=== PATIENT | male | born 1970 | race Caucasian/White ===

== ENCOUNTER → 2020-11-05 14:01 | Outpatient (CLI) | payer OTHER, SELFPAY ==
--- NOTE | ~2020-11-05 | MR_ITS ---
EXAMINATION: MR sacroiliac jts wo/w con DATE: 11/05/2020 15:09 INDICATION: Ulcerative pancolitis without complications. TECHNIQUE: Magnetic resonance imaging (MRI) of the sacroiliac joints was performed without and with 2 0 mL MultiHance intravenous contrast. Sequences included coronal oblique (coronal to sacrum) T1-weigh luisa FSE and T2-weighted FS FSE, axial oblique (axial to sacrum) T1-weighted FSE, T1-weighted FS FSE, and T2-weighted FS FSE, and sagittal PD-weighted FSE. Postcontrast images included axial oblique and coronal oblique T1-weighted FS FSE. COMPARISON: CT abdomen and pelvis 02/21/19 FINDINGS: Bone alignment is normal. No fracture. The sacroiliac joints demonstrate tiny osteophytes. There is subchondral edema-like marrow signal intensity in the sacroiliac joints inferiorly, right wo rse than left. There are no visible erosions of bone. The prior CT demonstrates no erosions of bone a t the sacroiliac joints. There is moderate tendinopathy of right hamstring origin. IMPRESSION: 1. Mild bilateral sacroiliac joint arthritis, which may be osteoarthritis or inflammatory bowel disea se associated inflammatory arthritis. Reviewed, dictated and finalized at location A. R DONOR COORDINATOR IMPRESSION: 1. Mild bilateral sacroiliac joint arthritis, which may be osteoarthritis or in flammatory bowel disease associated inflammatory arthritis.
[2020-11-05 14:31] LABS: Estimated Glomerular Filt Rate > 60
== END ==
PROVIDERS: PCP Family Medicine; Visit Provider Internal Medicine
DX: K51.00 Ulcerative (chronic) pancolitis without complications (principal); M47.898 Other spondylosis, sacral and sacrococcygeal region
CPT/HCPCS: 72197; A9577

== ENCOUNTER 2020-11-19 09:40 | Outpatient (CLI) | payer OTHER, SELFPAY ==
[2020-11-19 10:05] LABS: Basophils Percent Auto 0.5 % (0.2-1.2); Eosinophils Absolute Auto 0.1 K/mm3 (0-0.3); Eosinophils Percent Auto 1.3 % (0-4.4); Hematocrit 40.3 % (42.0-52.0); Immature Granulocyte Absolute 0.02 K/mm3 (0.00-0.031); Immature Granulocyte Percent A 0.2 % (0-0.5); Lymphocytes Absolute Auto 1.82 K/mm3 (0.9-3.2); Lymphocytes Percent Auto 22.3 % (18.3-44.2); Mean Corpuscular HGB Conc 32.3 g/dl (32-36); Mean Corpuscular Volume 93.1 fl (80-100); Mean Platelet Volume 9.4 fl (7.4-10.4); Monocytes Absolute Auto 0.7 K/mm3 (0.1-0.6); Monocytes Percent Auto 8.3 % (2.6-8.5); Neutrophils Absolute Auto 5.5 K/mm3 (1.3-6.7); Neutrophils Percent Auto 67.4 % (45.5-73.1); Platelet Count Result 344 k/mm3 (150-375); Red Blood Count 4.33 M/mm3 (4.6-6.20); Red Cell Distribution Width 12.8 % (11.5-14.5); White Blood Count 8.2 K/mm3 (4.5-10.0)
[2020-11-19 12:36] LABS: Iron 78 ug/dL (49-181)
[2020-11-19 12:39] LABS: Alanine Aminotransferase 19 U/L (4-50); Albumin Level 4.1 g/dL (3.5-5.1); Alkaline Phosphatase 76 U/L (38-126); Anion Gap 9 mmol/L (8-16); Aspartate Amino Transferase 27 U/L (17-59); Bilirubin,Total 1.1 mg/dL (0.2-1.3); Blood Urea Nitrogen 25 mg/dL (9-20); Calcium 9.3 mg/dL (8.4-10.2); Carbon Dioxide 23 mmol/L (22-30); Chloride 106 mmol/L (98-107); Estimated Glomerular Filt Rate > 60; Glucose 93 mg/dL (75-110); Potassium 4.7 mmol/L (3.4-5.0); Sodium 138 mmol/L (137-145)
[2020-11-19 12:52] LABS: Percent Iron Saturation 23 % (20-50)
[2020-11-19 13:43] LABS: Folic Acid 18.3 ng/mL (2.76->20)
== END 2020-11-19 09:41 | disposition home or self-care (01) ==
LOC: ANHLAB 09:42
PROVIDERS: Family Provider Family Medicine; PCP Family Medicine; Visit Provider Internal Medicine Hematology & Oncology
DX: D50.9 Iron deficiency anemia, unspecified (principal)
CPT/HCPCS: 36415; 80053; 82607; 82728; 82746; 83540; 83550; 85025

== ENCOUNTER 2020-12-30 08:32 | Outpatient (CLI) | payer OTHER, SELFPAY | END 2020-12-30 08:33 | disposition home or self-care (01) | LOC: ANHCOVIDVC 08:32 | PROVIDERS: PCP Family Medicine | DX: Z23 Encounter for immunization (principal) | CPT/HCPCS: 0001A; 91300 ==

== ENCOUNTER 2021-01-20 08:33 | Outpatient (CLI) | payer OTHER, SELFPAY | END 2021-01-20 08:34 | disposition home or self-care (01) | LOC: ANHCOVIDVC 08:34 | PROVIDERS: PCP Family Medicine | DX: Z23 Encounter for immunization (principal) | CPT/HCPCS: 0002A; 91300 ==

== ENCOUNTER → 2021-08-02 03:32 | Outpatient (CLI) | payer OTHER, SELFPAY ==
[2021-08-02 19:14] LABS: SARS-CoV-2 RNA PCR Positive
== END ==
PROVIDERS: PCP Family Medicine; Visit Provider Nurse Practitioner Family
DX: U07.1 COVID-19 (principal)
CPT/HCPCS: C9803; U0003; U0005

== ENCOUNTER 2021-09-16 13:33 | Outpatient (RCR) | payer OTHER, SELFPAY ==
[2021-09-16 14:02] LABS: Basophils Percent Auto 0.4 % (0.2-1.2); Eosinophils Absolute Auto 0.1 K/mm3 (0-0.3); Eosinophils Percent Auto 1.4 % (0-4.4); Hematocrit 38.7 % (42.0-52.0); Immature Granulocyte Absolute 0.02 K/mm3 (0.00-0.031); Immature Granulocyte Percent A 0.3 % (0-0.5); Lymphocytes Absolute Auto 2.09 K/mm3 (0.9-3.2); Lymphocytes Percent Auto 29.5 % (18.3-44.2); Mean Corpuscular HGB Conc 33.6 g/dl (32-36); Mean Corpuscular Hemoglobin 30.9 pg (26-34); Mean Corpuscular Volume 91.9 fl (80-100); Monocytes Absolute Auto 0.6 K/mm3 (0.1-0.6); Monocytes Percent Auto 8.1 % (2.6-8.5); Neutrophils Absolute Auto 4.3 K/mm3 (1.3-6.7); Neutrophils Percent Auto 60.3 % (45.5-73.1); Platelet Count Result 356 k/mm3 (150-375); Red Blood Count 4.21 M/mm3 (4.6-6.20); Red Cell Distribution Width 13.5 % (11.5-14.5); White Blood Count 7.1 K/mm3 (4.5-10.0)
[2021-09-16 15:35] LABS: Iron 60 ug/dL (49-181)
[2021-09-16 15:36] LABS: Anion Gap 8 mmol/L (8-16); Blood Urea Nitrogen 18 mg/dL (9-20); Calcium 9.3 mg/dL (8.4-10.2); Carbon Dioxide 26 mmol/L (22-30); Chloride 103 mmol/L (98-107); Estimated Glomerular Filt Rate > 60; Glucose 117 mg/dL (65-110); Potassium 3.9 mmol/L (3.4-5.0); Sodium 137 mmol/L (137-145)
[2021-09-16 15:44] LABS: Percent Iron Saturation 17 % (20-50)
== END 2021-12-15 23:59 | disposition home or self-care (01) ==
LOC: ANHLAB 13:33
PROVIDERS: PCP Family Medicine; Visit Provider Internal Medicine Hematology & Oncology
DX: D50.9 Iron deficiency anemia, unspecified (principal)
CPT/HCPCS: 36415; 80048; 82728; 83540; 83550; 85025

== ENCOUNTER 2022-09-23 09:26 | Emergency (ER) | payer OTHER, SELFPAY ==
[2022-09-23 09:36] VITALS: BP 106/65; PULSE 74; RESP 16; TEMP 37.4; O2SAT 99
--- NOTE | 2022-09-23 09:37 | ED.URI ---
HPI - URI/Sore Throat General Chief Complaint: Upper Respiratory Infection Stated Complaint: cough Time Seen by Provider: 09/23/22 09:40 Source: patient Mode of arrival: ambulatory Limitations: no limitations History of Present Illness HPI Narrative: Biju is a 52-year-old male patient presenting to clinic today with complaints cough that has been lingering for over 1 month. He denies any fever or chills. He denies any flu-like symptoms. States that he does not feel as though he is congested but has a cough that is productive at times. He states that the phlegm is use like clear. MD elicited complaint: cough Related Data Home Medications Medication Instructions Recorded Confirmed ferrous sulfate 325 mg (65 mg 325 mg PO DAILY 12/17/20 09/23/22 iron) tablet (FeroSul) calcium carb-ergocalciferol (vit 1 tablet PO DAILY 04/10/22 09/23/22 D2) 600 mg calcium-200 unit tablet multivitamin 1 tablet PO DAILY 04/10/22 09/23/22 prednisone 5 mg tablet 5 mg PO DAILY 09/23/22 09/23/22 Allergies Allergy/AdvReac Type Severity Reaction Status Date / Time ferumoxytol Allergy Unknown Flushing Verified 09/23/22 09:37 Review of Systems Review of Systems: Pertinent positives per HPI. Patient denies any fever, chills, rash, headache, visual changes, dizziness, shortness of breath, chest pain, palpitations, nausea, vomiting, diarrhea, constipation, abdominal pain, or any urinary issues. PMFSH Past Medical History Medical History Abscess Colostomy care Deficient knowledge of surgical removal of colon H/O malignant neoplasm of skin Iron deficiency anemia Pleural effusion Ulcerative (chronic) enterocolitis (~2019) Surgical History Surgical History H/O hemicolectomy S/P proctocolectomy Family History Family History Father Family history of malignant neoplasm of esophagus Social History Social History Smoking status: Never smoker Alcohol intake: current Drinks per week: 2 Alcohol use details: casual Substance use: never Additional occupation/education comments: Sales management Gender identity (if verbalized by the patient): Male Spiritual care concerns: No Comments At the time of my signature, I reviewed and agree with the nursing past medical, surgical, social, and family history. There is no relevant family history pertinent to the patient complaint. Exam Narrative: General: Well-developed, well nourished, in no apparent distress Head: Normocephalic, atraumatic Eyes: Pupils equally round and reactive to light bilaterally, EOM intact, sclera and conjunctive clear, no discharge, lids normal Ears: TMs intact and clear, ear canals clear, no drainage, grossly hearing normal. Nose: Nares patent, clear nasal discharge, no inflammation, no sinus tenderness. Mouth: Oral pharynx without lesions or masses, good dentition, MMM. Postnasal drip Neck: Supple, trachea midline, no enlargement of anterior or posterior cervical nodes, no thyroid masses or goiter palpable. Cardio: Regular rate and rhythm, s1 and s2 normal, no murmur appreciated. Resp: Clear to auscultation bilaterally, no rhonchi, rales, wheezing or rubs Course Course Emergency Course: Portions of this record may have been created with voice recognition software. Level of Care: Express Care Visit Vital Signs Vital signs: Vital Signs Temperature 37.4 C 09/23/22 09:36 Pulse Rate 74 09/23/22 09:36 Respiratory Rate 16 09/23/22 09:36 Blood Pressure 106/65 09/23/22 09:36 Pulse Oximetry 99 09/23/22 09:36 Temperature 37.4 C 09/23/22 09:36 Pulse Rate 74 09/23/22 09:36 Respiratory Rate 16 09/23/22 09:36 Blood Pressure 106/65 09/23/22 09:36 Pulse Oximetry 99 09/23/22
== END 2022-09-23 09:49 | disposition home or self-care (01) ==
PROVIDERS: Emergency Provider Nurse Practitioner Family; PCP Family Medicine
DX: J30.9 Allergic rhinitis, unspecified (principal); R09.82 Postnasal drip
CPT/HCPCS: 99213; G0463

== ENCOUNTER 2023-01-22 09:39 | Outpatient (CLI) | payer OTHER, SELFPAY ==
[2023-01-22 10:01] LABS: Basophils Percent Auto 0.4 % (0.2-1.2); Eosinophils Absolute Auto 0.1 K/mm3 (0-0.3); Eosinophils Percent Auto 1.7 % (0-4.4); Hematocrit 40.1 % (42.0-52.0); Hemoglobin 13.1 g/dL (14.0-18.0); Immature Granulocyte Absolute 0.05 K/mm3 (0.00-0.031); Immature Granulocyte Percent A 0.7 % (0-0.5); Lymphocytes Absolute Auto 1.97 K/mm3 (0.9-3.2); Lymphocytes Percent Auto 27.4 % (18.3-44.2); Mean Corpuscular HGB Conc 32.7 g/dl (32-36); Mean Corpuscular Hemoglobin 30.8 pg (26-34); Mean Corpuscular Volume 94.1 fl (80-100); Monocytes Absolute Auto 0.5 K/mm3 (0.1-0.6); Monocytes Percent Auto 6.7 % (2.6-8.5); Neutrophils Absolute Auto 4.6 K/mm3 (1.3-6.7); Neutrophils Percent Auto 63.1 % (45.5-73.1); Platelet Count Result 317 k/mm3 (150-375); Red Blood Count 4.26 M/mm3 (4.6-6.20); Red Cell Distribution Width 12.8 % (11.5-14.5); White Blood Count 7.2 K/mm3 (4.5-10.0)
[2023-01-22 13:22] LABS: Iron 117 ug/dL (49-181)
[2023-01-22 13:27] LABS: Anion Gap 9 mmol/L (8-16); Blood Urea Nitrogen 20 mg/dL (9-20); Calcium 8.3 mg/dL (8.4-10.2); Carbon Dioxide 25 mmol/L (22-30); Chloride 105 mmol/L (98-107); Estimated Glomerular Filt Rate > 60; Glucose 101 mg/dL (65-110); Sodium 139 mmol/L (137-145)
[2023-01-22 13:32] LABS: Percent Iron Saturation 33 % (20-50)
[2023-01-22 14:28] LABS: Folic Acid 15.2 ng/mL (2.76->20)
== END 2023-01-22 09:40 | disposition home or self-care (01) ==
LOC: ANHLAB 09:41
PROVIDERS: PCP Family Medicine; Visit Provider Internal Medicine Hematology & Oncology
DX: D50.9 Iron deficiency anemia, unspecified (principal)
CPT/HCPCS: 36415; 80048; 82607; 82728; 82746; 83540; 83550; 85025

== ENCOUNTER 2023-07-31 13:28 | Outpatient (CLI) | payer OTHER, SELFPAY ==
[2023-07-31 13:42] LABS: Basophils Percent Auto 0.6 % (0.2-1.2); Eosinophils Absolute Auto 0.1 K/mm3 (0-0.3); Eosinophils Percent Auto 1.5 % (0-4.4); Hematocrit 40.8 % (42.0-52.0); Hemoglobin 14.1 g/dL (14.0-18.0); Immature Granulocyte Absolute 0.02 K/mm3 (0.00-0.031); Immature Granulocyte Percent A 0.3 % (0-0.5); Lymphocytes Percent Auto 30.3 % (18.3-44.2); Mean Corpuscular HGB Conc 34.6 g/dl (32-36); Mean Corpuscular Hemoglobin 32.1 pg (26-34); Mean Corpuscular Volume 92.9 fl (80-100); Mean Platelet Volume 9.6 fl (7.4-10.4); Monocytes Absolute Auto 0.6 K/mm3 (0.1-0.6); Monocytes Percent Auto 8.5 % (2.6-8.5); Neutrophils Absolute Auto 3.9 K/mm3 (1.3-6.7); Neutrophils Percent Auto 58.8 % (45.5-73.1); Platelet Count Result 277 k/mm3 (150-375); Red Blood Count 4.39 M/mm3 (4.6-6.20); Red Cell Distribution Width 12.5 % (11.5-14.5); White Blood Count 6.6 K/mm3 (4.5-10.0)
[2023-07-31 16:31] LABS: Anion Gap 8 mmol/L (8-16); Blood Urea Nitrogen 19 mg/dL (9-20); Calcium 8.9 mg/dL (8.4-10.2); Carbon Dioxide 23 mmol/L (22-30); Chloride 104 mmol/L (98-107); Estimated Glomerular Filt Rate > 60; Glucose 129 mg/dL (65-110); Iron 99 ug/dL (49-181); Potassium 3.7 mmol/L (3.4-5.0); Sodium 135 mmol/L (137-145)
[2023-07-31 16:45] LABS: Percent Iron Saturation 27 % (20-50)
[2023-07-31 17:38] LABS: Folic Acid 17.7 ng/mL (2.76->20)
== END 2023-07-31 13:29 | disposition home or self-care (01) ==
PROVIDERS: PCP Family Medicine; Visit Provider Internal Medicine Hematology & Oncology
DX: D50.9 Iron deficiency anemia, unspecified (principal)
CPT/HCPCS: 36415; 80048; 82607; 82728; 82746; 83540; 83550; 85025

== ENCOUNTER 2024-07-13 09:44 | Emergency (ER) | payer OTHER, SELFPAY ==
[2024-07-13 09:56] VITALS: BP 119/67; PULSE 64; RESP 16; TEMP 36.4; O2SAT 100
--- NOTE | 2024-07-13 10:26 | ED.SKABFB ---
HPI - Skin/Abscess/Foreign Bdy General Chief complaint: Skin/Abscess/Foreign Body Stated complaint: Sore on Toe Time Seen by Provider: 07/13/24 10:10 Source: patient and RN notes reviewed Mode of arrival: ambulatory Limitations: no limitations History of Present Illness HPI narrative: Patient presents today complaining of a sore to his right 3rd toe that has been present for approximately 10 days. He has been using a medicated corn pad on the area of which does provide some relief. Denies drainage from the area. Related Data Home Medications Medication Instructions Recorded Confirmed ferrous sulfate 325 mg (65 mg 325 mg PO DAILY 12/17/20 07/13/24 iron) tablet (FeroSul) calcium carb-ergocalciferol (vit 1 tablet PO DAILY 04/10/22 07/13/24 D2) 600 mg calcium-200 unit tablet multivitamin 1 tablet PO DAILY 04/10/22 07/13/24 cefdinir 300 mg capsule 300 mg PO DAILY 06/23/24 07/13/24 Allergies Allergy/AdvReac Type Severity Reaction Status Date / Time ferumoxytol Allergy Unknown Flushing Verified 07/13/24 10:03 Review of Systems Review of Systems: CONSTITUTIONAL: Denies body aches, fever, chills, or sweats. EYES: Denies visual changes, redness, or discharge. ENT: Denies rhinorrhea, congestion, sore throat, or otalgia. CARDIOVASCULAR: Denies chest pain, palpitations, or edema. RESPIRATORY: Denies cough or dyspnea. GASTROINTESTINAL: Denies abdominal pain, nausea, vomiting, or diarrhea. GENITOURINARY: Denies dysuria or hematuria. SKIN: Sore to right 3rd toe MUSCULOSKELETAL: Denies back pain, joint pain, or myalgia. NEUROLOGIC: Denies headache, numbness, tingling, or weakness. PSYCH: Denies depression or anxiety. [facility] Past Medical History Medical History Abscess BCC (basal cell carcinoma) Colostomy care Deficient knowledge of surgical removal of colon H/O malignant neoplasm of skin Iron deficiency anemia Pleural effusion Ulcerative (chronic) enterocolitis (~2018) Surgical History Surgical History H/O hemicolectomy S/P proctocolectomy Family History Family History Father Family history of malignant neoplasm of esophagus Social History Social History Smoking status: Never smoker Alcohol intake: current Drinks per week: 2 Alcohol use details: casual Substance use: never Living arrangements: with family Occupation/Education: occupation Additional occupation/education comments: Sales management Gender identity (if verbalized by the patient): Male Spiritual care concerns: No Comments At time of signature, I have reviewed and agree with nursing past medical, surgical, social and family history unless otherwise noted. Please see nursing chart for further information. There is no relevant family history pertinent to the presenting complaint Exam Narrative: GENERAL: Well-appearing, well-nourished, and in no acute distress. HEAD: Normocephalic, atraumatic. EYES: EOMI. No redness or drainage. Conjunctivae normal. ENT: Mucous membranes pink and moist. NECK: Normal AROM. CHEST: No respiratory distress. EXTREMITIES: 1cm round white firm macerated skin lesion to the lateral aspect of the right 3rd toe. Nontender to palpation. Some mild surrounding erythema. Distal sensation intact. Capillary refill normal. Full range of motion of the toe. SKIN: Warm, dry, no rash. Capillary refill normal. Normal skin turgor. NEURO: No focal deficits. Alert and oriented x3. Gait steady. PSYCH: Normal affect. No signs of depression or anxiety. Course Course Level of Care: Express Care Visit Vital Signs Vital signs: Vital Signs Temperature 97.6 F 07/13/24 09:56 Pulse Rate 64 07/13/24 09:56 Respiratory Rate 16 07/13/24 09:56 Blood Pre
== END 2024-07-13 10:34 | disposition home or self-care (01) ==
PROVIDERS: Emergency Provider Nurse Practitioner; PCP Family Medicine
DX: L97.519 Non-pressure chronic ulcer of other part of right foot with unspecified severity (principal); D50.9 Iron deficiency anemia, unspecified; Z85.828 Personal history of other malignant neoplasm of skin
CPT/HCPCS: 99213; G0463

== ENCOUNTER 2024-09-15 10:15 | Outpatient (CLI) | payer OTHER, SELFPAY ==
[2024-09-15 10:30] LABS: Hematocrit 39.9 % (42.0-52.0); Hemoglobin 13.6 g/dL (14.0-18.0); Mean Corpuscular HGB Conc 34.1 g/dl (32-36); Mean Corpuscular Hemoglobin 32.1 pg (26-34); Mean Corpuscular Volume 94.1 fl (80-100); Mean Platelet Volume 9.3 fl (7.4-10.4); Platelet Count Result 262 k/mm3 (150-375); Red Blood Count 4.24 M/mm3 (4.6-6.20); Red Cell Distribution Width 12.2 % (11.5-14.5); White Blood Count 6.2 K/mm3 (4.5-10.0)
[2024-09-15 12:54] LABS: Iron 105 ug/dL (49-181)
[2024-09-15 13:04] LABS: Percent Iron Saturation 29 % (20-50)
[2024-09-16 06:54] LABS: Folic Acid 16.5 ng/mL (2.76->20)
== END 2024-09-15 10:16 | disposition home or self-care (01) ==
LOC: ANHLAB 10:17
PROVIDERS: PCP Family Medicine; Visit Provider Internal Medicine Hematology & Oncology
DX: D64.9 Anemia, unspecified (principal)
CPT/HCPCS: 36415; 82607; 82728; 82746; 83540; 83550; 85027

== ENCOUNTER 2025-06-15 13:12 | Outpatient (CLI) | payer OTHER, SELFPAY ==
[2025-06-15 13:32] LABS: Hematocrit 39.3 % (42.0-52.0); Hemoglobin 13.3 g/dL (14.0-18.0); Immature Granulocyte Percent A 0.2 % (0-0.5); Lymphocytes Absolute Auto 1.65 K/mm3 (0.9-3.2); Mean Corpuscular HGB Conc 33.8 g/dl (32-36); Mean Corpuscular Hemoglobin 31.7 pg (26-34); Mean Corpuscular Volume 93.8 fl (80-100); Nucleated Red Blood Cells Absolute Auto 0.000 K/mm3 (0.0-0.012); Nucleated Red Blood Cells Perc 0.0 % (0.0-0.2); Platelet Count Result 257 k/mm3 (150-375); Red Blood Count 4.19 M/mm3 (4.6-6.20); White Blood Count 6.3 K/mm3 (4.5-10.0)
--- OUTSIDE RECORDS SUMMARY | 2025-06-15 14:07 | XMS_ITS | Encounter Summary ---
Author Organization [facility] Healthcare Address [address] [place] [address] Care Team Providers Care Green Building Architect Name Role Phone Randolph Batres MD Primary Care Provider Won Michaels MD Unavailable [phone] Encounter Details Date Type Department Care Team (Late st Contact Info) Description 07/14/2019 Telephone [facility] Radiology [facility] [address] [place] [address] Nya Villegas RN Social History Tobacco Use Types Packs/Day Years Used Date Smoking Tobacco: Never Smokeless Tobacco: Never Alcohol Use Standard Drinks/Week Comments Not Currently 0 (1 standard drink = 0.6 oz pur e alcohol) Sex and Gender Information Value Date Recorded Sex Assigned at Not on file Legal Sex Male 9:04 AM CDT Gender Identity Not on file Sexual Orientation Not on file documented as of this encounter Plan of Treatment Not on file documented as of this encounter Visit Diagnoses Not on filedocumented in this encounter Care Teams Green Building Architect Relationship Specialty Start Date End Date Randolph Batres MD [address] [facility] [address] [place] [address] PCP - General 03/06/19 Won Michaels MD [address] [facility] [address] [place] [address] Gastroenterology 04/03/19 documented as of this encounter
--- OUTSIDE RECORDS SUMMARY | 2025-06-15 14:07 | XMS_ITS | Encounter Summary ---
Author Organization [facility] Healthcare Address [address] [place] [address] Care Team Providers Care Rotary Driller Helper Name Role Phone Randolph Batres MD Primary Care Provider Won Michaels MD Unavailable [phone] Encounter Details Date Type Department Care Team (Late st Contact Info) Description 07/12/2020 Documentation [facility] Case Management [address] [place] [address] Susie Hemphill RN Social History Tobacco Use Types Packs/Day Years Used Date Smoking Tobacco: Never Smokeless Tobacco: Never Alcohol Use Standard Drinks/Week Comments Yes 3 (1 standard drink = 0.6 oz pur [...] on filedocumented in this encounter Care Teams Rotary Driller Helper Relationship Specialty Start Date End Date Randolph Batres MD [address] [address] PCP - General 03/06/19 Won Michaels MD [address] [facility] [address] [place] [address] Gastroenterology 04/03/19 documented as of this encounter
--- OUTSIDE RECORDS SUMMARY | 2025-06-15 14:07 | XMS_ITS | Encounter Summary ---
Author Organization [facility] Healthcare Address [address] [place] [address] Care Team Providers Care Resource Management Specialist Name Role Phone Randolph Batres MD Primary Care Provider Won Michaels MD Unavailable [phone] Encounter Details Date Type Department Care Team (Late st Contact Info) Description 07/12/2020 Documentation [facility] Case Management [address] [place] [address] Susie Hemphill RN Social History Tobacco Use [...] on filedocumented in this encounter Care Teams Resource Management Specialist Relationship Specialty Start Date End Date Randolph Batres MD [address] [address] PCP - General 03/06/19 Won Michaels MD [address] [facility] [address] [place] [address] Gastroenterology 04/03/19 documented as of this encounter
--- OUTSIDE RECORDS SUMMARY | 2025-06-15 14:07 | XMS_ITS | Clinical Summary ---
Author Organization [facility] Address [address] [place] [address] Care Team Providers Care Bag Sorter Name Role Phone Randolph Batres MD Primary Care Provider [phone] Allergies Active Allergy Reactions Criticality Noted Date Comments Ferumoxytol Shortness of Breath/Wheezing High 07/14/2019 ( IRON TRANSFUSION) Medications ferrous sulfate 325 mg (65 mg iron) tablet Take 325 mg by mouth daily. Active [id number] ERROUS GLUCONATE ORAL Take 1 Tablet by mouth. Active cyanocobalamin (VITAMIN B-12) 1,000 mcg/mL SolutionIndica tions:Iron deficiency anemia, unspecified iron deficiency anemia type Inject 1 mL (1,000 mcg) by intramuscular injection every 30 days. 1 mL 3 022 Active Syringe with Needle, Disp, (BD Luer-Sole Syringe) 3 mL 25 gauge x 1 Syringe USE DIRECTED FOR B-12 INJECTION. 3 Each 3 10/26/20 22 2:15 PM DEEP SEA DIVER 022 Active cyanocobalamin (VITAMIN B-12) 1,000 mcg/mL SolutionIndica tions:Iron deficiency anemia, unspecified iron deficiency anemia type INJECT 1 ML INTRAMUSCULARLY EVERY 30 DAYS 3 mL 3 04/23/20 25 12:46 PM CDT 025 Active Syringe with Needle, Disp, (BD Tuberculin Syringe) 1 mL 27 x 1/2 SyringeIndicat ions:Iron deficiency anemia, unspecified iron deficiency anemia type Use with B12 injection. 1 Each 025 Active semaglutide, weight loss, (Wegovy) 0.25 mg/0.5 mL Pen Injector Inject 0.25 mg subcutaneously weekly 2 mL 025 Active cefdinir (OMNICEF) 300 mg capsule Take 1 Capsule (300 mg) by mouth 2 times daily. 60 Capsule 1 05/30/20 11:34 AM CDT 025 Active cefdinir (OMNICEF) 300 mg capsule Take 1 Capsule (300 mg) by mouth 2 times daily. 60 Capsule 2 04/23/20 12:46 PM CDT 025 2024 Discontinued Active Problems Problem Noted Date Diagnosed Date Iron deficiency anemia 06/11/2019 Ulcerative colitis 06/11/2019 Encounters Date Type Department Care Team Description 04/21/2025 External Device Data [facility] ABSTRACTION Provider, Abstract 03/18/2025 External Device Data [facility] ABSTRACTION Provider, Abstract 03/17/2025 External Device Data [facility] ABSTRACTION Provider, Abstract from Last 3 Months Immunizations Immunization Administration Dates Next Due INFLUENZA VACCINE QUADRIVALENT 6 MOS UP PF IM Family History Relation Name Status Comments Brother 1 Alive Brother 2 Alive Brother 3 Alive Father Mother Social History Tobacco Use Types Packs/Day Years Used Date Smoking Tobacco: Never Smokeless Tobacco: Never Tobacco Cessation:Counseling Given: Not Answered Alcohol Use Standard Drinks/Week Comments Never 0 (1 standard drink = 0.6 oz pur e alcohol) Sex and Gender Information Value Date Recorded Sex Assigned at Not on file Legal Sex Male 9:39 AM CDT Gender Identity Not on file Sexual Orientation Not on file Last Filed Vital Signs Vital Sign Reading Time Taken Comments Blood Pressure 118/69 09/18/2024 10:55 AM DEEP SEA DIVER Pulse 59 09/18/2024 10:55 AM DEEP SEA DIVER Temperature 36.6 C (97.8 F) 09/18/2024 10:55 AM DEEP SEA DIVER Respiratory Rate 15 09/18/2024 10:5 5 AM DEEP SEA DIVER Oxygen Saturation 97% 09/18/2024 10: 55 AM DEEP SEA DIVER Inhaled Oxygen Concentration - - Weight 114.5 kg (252 lb 6.4 oz) 024 10:55 AM DEEP SEA DIVER Height 177.8 cm (5' 10) 06/29/2022 9:42 AM CDT Body Mass Index 36.22 06/29/2022 9:42 AM CDT Plan of Treatment Upcoming Encounters Date Type Department Care Team (Late st Contact Info) Description 06/19/2025 9:45 AM CDT Office Visit [facility] Oncology and Hematology - [place] [address] [facility] [address] [place] [address] Valentin Zendejas MD [address] [facility] [address] [place] [address] Health Maintenance Due Date Last Done Comments Pre-Diabetes and Diabetes Screening 1971 DTAP/TDAP/TD VACCINES (1 - Tdap) 1990 HEPATITIS B VACCINES (1 of 3 - 19+ 3-dose series) 01/27 COLORECTAL SCREENING 02/12/2016 Colorectal Cancer Screening 02/12/2016 FIT-DNA Q 3 years 02/12/2016 FIT/FOBT Q 1 year 02/12/2016 Flex Sig/CT Colonography Q 5 years 02/12/2016 ZOSTER VACCINE (1 of 2) 2021 Preventative Visit- Commercial 10/29/2024 INFLUENZA VACCINE (#1) 2025 10/11/2022 Insurance [facility] OPTIONS PPO [id number] R [facility] OPTIONS PPO [id number] RX [employer] (INTERNAL) [facility] [employer] RX [employer] RX Member Subscriber Plan / Payer (Ef fective for All Dates) Name:Kike Mooney Relation to Subscriber:Self Name:Kike Mooney Payer ID:Not on file Type:RX Commercial Address: [address] [place] RX [employer] RX Member Subscriber Plan / Payer (Ef fective for All Dates) Name:KIKE MOONEY Relation to Subscriber:Spouse Name:KIKE MOONEY Payer ID:Not on file Type:RX Commercial Address: [address] Care Teams Bag Sorter Relationship Specialty Start Date End Date Randolph Batres MD [address] [facility] [address] [place] [address] PCP - General Family Practice 06/09/19
--- OUTSIDE RECORDS SUMMARY | 2025-06-15 14:07 | XMS_ITS | Clinical Summary ---
Author Organization [facility] Address [address] [place] [address] Care Team Providers Care Social Work Faculty Member Name Role Phone Randolph Batres MD Primary Care Provider Won Michaels MD Unavailable [phone] Allergies Active Allergy Reactions Criticality Noted Date Comments Ferumoxytol Shortness of breath High 07/14/2019 ( IRON TRANSFUSION) Medications ferrous sulfate (IRON ORAL) Take 56 mg by mouth every morning Active ascorbic acid (VITAMIN C ORAL) Take 2 tablets by mouth every morning Active multivit-min/ ferrous fumarate (MULTI VITAMIN ORAL) Take 1 tablet by mouth every morning Active acetaminophen 500 mg capsuleIndica tions:Pain Take 2 capsules (1,000 mg total) by mouth every 6 (six) hours 30 tablet 020 Active cyanocobalami n (Vitamin B-12) 1,000 mcg/mL injection INJECT 1 ML INTRAMUSCULARLY EVERY 30 DAYS 022 Active syringe with needle 1 mL 27 x 1/2 syringe Use with B12 injection. 023 Active cefdinir (OMNICEF) 300 mg capsule Take 1 Capsule (300 mg) by mouth 2 times daily. 60 capsule 1 025 Active cefdinir (OMNICEF) 300 mg capsule Take 1 Capsule (300 mg) by mouth 2 times daily. 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 No bleeding. Will renew the cefdinir and see how he does. ? Whether we should go with entyvio. 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 Overview (06/09/2020): Added automatically from request for surgery [id number] Stricture of anus 05/11/2020 Overview (06/09/2020): Added automatically from request for surgery [id number] Ileostomy in place 04/21/2020 Ulcerative colitis with complication 10/03/2019 Overview (10/03/2019): Added automatically from request for surgery [id number] History of creation of ostomy 10/03/2019 Overview (10/03/2019): Added automatically from request for surgery [id number] Severe malnutrition 07/03/2019 Therapeutic drug monitoring 07/01/2019 Assessment & Plan (07/01/2019 4:45 PM CDT): Ceftriaxone: Monitoring weekly CBC and CMP for possibility of rash/eosinophilia and pseudocholelithiasis (gallbladder sludging) or hepatitis. Rarely, ceftriaxone can cause drug fever, hepatitis, neutropenia, thrombocytopenia, hemolytic anemia, cholecystitis, or interstitial nephritis. Metronidazole is associated with GI intolerance, metallic taste, headaches, dark urine. Rarely, it can be associated with seizures, encephalopathy, aseptic meningitis, Caballero-Efrem syndrome, peripheral neuropathy, insomnia, and a disulfiram-like reaction with alcohol. Patients are advised to avoid alcohol while taking the medication. Pleural effusion 06/27/2019 Assessment & Plan (07/01/2019 4:44 PM CDT): Pleural effusion found on CXR, CT chest/abd/plevis Initial studies showed pH 7.34, 1805 nucleated cells, glucose 91, protein 5.2, LDH 107, cloudy appearance Had re-accumulation of pleural effusion post initial thoracentesis on 06/28 and underwent chest tube place Repeat pleural fluid studies + culture obtained Likely reactive to intra-abdominal abscess Recommendations: -will follow repeat cultures of pleural fluid -antibiotic recommendations as above -will need antibiotics as long as chest tube in place and for minimum of 2 weeks Assessment & Plan (07/07/2019 10:15 AM CDT): 06/26 CXR: interval development of a large L pleural effusion and passive LLL atelectasis. Consistent with symptomatic progression of worsening SOB, exertional dyspnea, orthopnea, PE signs of decreased L sided BS. Likely 2/2 intraabdominal fluid collection (leukocytosis of 22.5, +fever/chills) per CT findings - d-dimer 2365, proBNP 1164, RVP negative - s/p thoracentesis 06/28 (1500mL out). Post thora 06/28 CXR: large left pleural effusion with associated compressive atelectasis left lower lobe airspace consolidation is stable. No evidence of pneumothorax. Pleural fluid protein 5.2, > half serum protein (7.6) suggestive of exudative process possibly due to irritation of the diaphragm by mass effect vs. Matthew bacterial translocation from intra-abdominal abscess - Plerual fluid cx- NGTD - repeat CXRs appears mildly decreased - CT 07/03 Interval decrease in size of a now small left-sided hydropneumothorax with thoracostomy tube in place. Thickened enhancing pleura may be b2b outside sales representative of an empyema. - f/u daily cxr - s/p TPA, dornase alpha 07/04, 07/05 through chest tube, suction through the weekend; plan for removal 07/07 Anemia 06/27/2019 Assessment & Plan (07/06/2019 7:56 AM CDT): RESOLVED. Patient has chronic history of anemia (Hgb baseline ~8s). Today presented with Hgb 6.2. Possibly contributed to by anemia of chronic diseases 2/2 chronic inflammation vs bloody rectal stump output vs general poor nutritional intake.Received iron infusion outpatient 2 days G[facility] SPECIALIST - s/p 3U to date, now stable ~8s - ferritin 1095 - trend CBC, transfuse >7 - vitamin K x3d; completed Intra-abdominal abscess 06/27/2019 Assessment & Plan (07/01/2019 4:41 PM CDT): 49 y.o. male with known history of ulcerative colitis status post colectomy for toxic megacolon on 03/11/2019, anemia, inflammatory arthritis, who initially presented on 06/27 for weakness in vomiting. Found to have intra-abdominal abscess and left- sided pleural effusion. Underwent IR drainage flank abscess on 06/28 with fluid cultures growing Streptococcus anginosus. Likely source is secondary to superimposed infection over residual fluid collection from total colectomy. Drain still in place with continuous purulent drainage. Currently on vancomycin + cefepime + flagyl. Recommendations: -Recommend switching antibiotics to ceftriaxone 2g IV Q24 hours and flagyl 500mg Q8hs and discontinuing vancomycin -continue antibiotics as long as drain in place -will likely need a minimum of 2 weeks of IV antibiotics, start date from when drain was placed on 06/28 -if develops fever, worsening leukocytosis or decompensates, recommend repeat CT abdomen to assess for new/non-draining fluid collections Assessment & Plan (07/04/2019 3:14 PM CDT): - 1/2 BCx 06/28 positive for viridans strep: likely contaminant - daily BCx x2 has been NGTD - s/p IR drainage of intra-abdominal collection 06/28, plan for f/u outpatient with IR - abdominal fluid cx positive for strep anginosus susceptible to ceftriaxone, levofloxacin, penicillin, vancomycin - on vanc/cefe/flagyl (06/28-07/01), f/u pleural fluid cx - switched to ceftriaxone/PO flagyl (07/01-) - ID on board for outpatient abx - colorectal surgery aware, plan for outpatient f/u 07/10 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 Pt with s/p colectomy and J-pouch . No meds Fecal bhumi 06/21/23 96, 03/2023 243, 10/2022 456 Pouchoscopy 03/2023: Findings: Prep is poor. Afferent limb intact. Bx's taken for both study and histology. The ileoanal pouch contained a single (solitary) ten mm ulcer. No bleeding was present. Biopsies were taken with a cold forceps for histology. Verification of patient identification for the specimen was done. Estimated blood loss was minimal. The ulcer was at the neoti pouch inlet. what could be seen of the pouch was normal. BX's taken for histology and study. There was a rectal cuff BX's taken for histology. Due to the amount of stool need to see bx's tu tell how much inflammation is present. Diagnosis: A. Afferent limb biopsies: - Small intestinal mucosa, no diagnostic abnormalities are identified - No granulomas or dysplasia B. Pouch ulcer biopsies: - Enteric mucosa with acute ulceration and reactive epithelial changes - No viral cytopathic changes (H&E), granulomas or dysplasia C. Pouch biopsies: - Small intestinal mucosa, no diagnostic abnormalities are identified - No granulomas or dysplasia D. Efferent limb biopsies: - Colonic mucosa with non-specific chronic mild active pouchitis - No granulomas or dysplasia Assessment & Plan (02/08/2024 9:13 AM CDT): At this point doing fair off ATB's. Will check fc if up resume the cefdinir. If not hold steady. Will f/u in 3 mo. Will go from there. Delightful patient. Assessment & Plan (11/08/2022 12:01 PM LINE THERAPIST): Patient s/p j ouch 2 years now with 10 bm/day. Pouchoscopy done last summer grossly normal. Iron def and b 12 def. ? Etiology. As such recommend boateng eval to include the methymal, homocystine. fc and c diff, CTE, CBC, CMP, CRP iron studies. Will also check celiac serology. Will f/up in 6 weeks. Loperamide during the day. Assessment & Plan (07/04/2019 3:14 PM CDT): S/p laparoscopic total abdominal colectomy w/ end ileostomy (03/11/19). Taking rectal mesalamine Assessment & Plan (03/11/2019 11:03 AM CDT): Clinically stable for the time being with treatment He is at risk for developing toxic megacolon and may need colectomy -continue daily monitoring and labs -continue IV methylprednisone, IV Cipro/Flagyl -clear liquid diet -serial abdominal exams and daily KUB -Discussed with CRS fellow: the abdominal x-ray finding today of markedly dilated transverse colon measuring 11 cm w hich has increased when compared to prior a nd consistent with toxic megacolon. Was told that patient was seen and examined by CRS fellow this morning who discussed the case with CRS attending and felt that Mr. Mooney's physical exam and overall clinical picture was stable and not warranting urgent surgical needs/colectomy at this time, despite today's abdominal x-ray read. -appreciate GI and CRS recommendations -per CRS note, planning for surgery 03/11 Ulcerative pancolitis with rectal bleeding 03/06 Overview (03/07/2019): Added automatically from request for surgery [id number] Acute postoperative pain Generalized abdominal pain Resolved Problems Problem Noted Date Diagnosed Date Resolved Date Weakness 06/27/2019 07/03/2019 Assessment & Plan (06/29/2019 8:11 AM CDT): IMPROVING. Patient presents with subacute worsening weakness and in the last few days, decreased PO intake. Possible etiologies are 2/2 to his sepsis and intra-abdominal fluid collection as well as large L pleural effusion vs. Less likely adrenal insufficiency given his recent steroid taper in 03/2019, hyponatremia, hypotension, history of questionable steroid dependence s/p his surgery on prior hospitalization (requiring methypred) - morning cortisol 12.6, hyponatremia now resolved. - zofran PRN Severe malnutrition 03/09/2019 07/03/20 Assessment & Plan (07/02/2019 7:42 AM CDT): Decreased PO intake significantly since surgery with significant weight loss -encourage po intake -nutrition c/s Encounters Date Type Department Care Team Description 03/17/2025 Results Follow-Up [facility] Gastroenterology [address] [place] [address] [place] [address] James Cruz MD Surgical pathology from Last 3 Months Surgical History Surgery Date Site/Laterality Comments VASECTOMY IMAGE GUIDED DRAINAGE PERITO DOREEN OR RETROPERITONEAL FLUID COLLECTION 06/28/2019 N/A ABSCESS CATHETER INJECTION 07/10/2019 N/A ABSCESS CATHETER INJECTION 07/17/2019 N/A COLECTOMY 03/11/2019 with end ileostomy EXPLORATORY LAPAROTOMY 12/23/2019 completion proctectomy, takedown ileostomy, creation ileal J-pouch with ileal pouch anal anastomosis, diverting loop ileostomy ILEOSTOMY CLOSURE 07/09/2020 COLONOSCOPY Medical History Medical History Date Comments Ulcerative colitis 2018 Inflammatory arthritis Pleural effusion 06/2019 Anemia Pouchitis (HCC) Family History Medical History Relation Name Comments Ulcerative colitis Maternal Grandmother Ulcerative colitis Mother Relation Name Status Comments Maternal Grandmother Mother Social History Tobacco Use Types Packs/Day Years Used Date Smoking Tobacco: Never Smokeless Tobacco: Never Tobacco Cessation:Counseling Given: Not Answered Alcohol Use Standard Drinks/Week Comments Yes 3 (1 standard drink = 0.6 oz pur e alcohol) AUDIT-C Answer Date Recorded Q1: How often do you have a drink containing alc ohol? 2-4 times a month 03/13/2025 Q2: How many drinks containi ng alcohol do you have on a typical day when you are drinking? 1 or 2 03/13/2025 Q3: How often do you have si x or more drinks on one occasion? Never 03/13/2025 Personal Safety Answer Date Recorded Have you ever been in or are you currently in a harmful physical or emotional relationship or is someone making you feel afraid or unsafe? Denies 03/13/2025 Sex and Gender Information Value Date Recorded Sex Assigned at Not on file Legal Sex Male 9:04 AM CDT Gender Identity Not on file Sexual Orientation Not on file Obstetrics History Last Filed Vital Signs Vital Sign Reading Time Taken Comments Blood Pressure 114/71 03/13/2025 9:25 AM CDT Pulse 61 03/13/2025 9:29 AM CDT Temperature 36.2 C (97.2 F) 03/13/2025 9:18 AM CDT Respiratory Rate 11 03/13/2025 9:29 AM CDT Oxygen Saturation 97% 03/13/2025 9:29 AM CDT Inhaled Oxygen Concentration - - Weight 115.2 kg (254 lb) 03/13/2025 8:10 AM CDT Height 177.8 cm (5' 10) 03/13/2025 8:10 AM CDT Body Mass Index 36.45 03/13/2025 8:10 AM CDT Plan of Treatment Health Maintenance Due Date Last Done Comments Colon Cancer Screening-Colonoscopy 1971 Depression Screening 1971 Prostate Cancer Screening-PSA 1971 DTaP/Tdap/Td Vaccine (1 - Tdap) 1982 Hepatitis B Screening 1989 Regular Well Visit/Exam 18-64 1989 Zoster Vaccine (1 of 2) 2021 Influenza Vaccine (#1) 2025 10/11/2022 Hepatitis C Screening Completed 03/08/2019 Pneumococcal vaccine <65 Aged Out No longer eligible based on patient's age to complete this topic Procedures Procedure Name Priority Date/Time Associated Diagnosis Comments HEPATITIS PANEL, ACUTE Routine 03/08/2019 12:57 PM CDT from Last 3 Months or Most Recently Relevant to Health Maintenance Results * Hepatitis panel, acute (03/08/2019 12:57 PM CDT) Hep A IgM Nonreactive Nonreactive [facility] Comment: Interpretive Data If test is reported as GRAYZONE, new sample should be drawn in two weeks for testing. Current interpretive data was last revised on 2016. Hep B core IgM Nonreactive Nonreactive [facility] Comment: Interpretive Data If test is reported as GRAYZONE, new sample should be drawn for testing. Current interpretive data was last revised on 2016. Hep C Ab Nonreactive Nonreactive [facility] Comment: Interpretive Data Positive results should be confirmed by a molecular method. If positive, a second separately collected sample should be submitted for Hepatitis C Virus (HCV) RNA Detection and Quantitation by Real-Time Reverse Upholsterer Helper-PCR (RT-PCR). Current interpretive data was last revised on 2016. HepBsAg Nonreactive Nonreactive [facility] Blood specimen (specimen) 03/08/2019 12:57 PM CDT 03/08/2019 1:33 PM CDT Narrative [facility] - 03/08/2019 2:36 PM CDT us Sravanthi Hewitt MD LAB MICROBIOLOGY - GEN ERAL ORDERABLES Edited Result - Final [facility] [address] [facility] Department [place] [address] from Last 3 Months or Most Recently Relevant to Health Maintenance Insurance [facility] CHO[employer] PL[employer] Member Subscriber Plan / Payer (Ef fective 2019-Present) Name:Biju Mooney Relation to Subscriber:Spouse Name:JENNIFER MOONEY Date of :1971 (Home) Address: [address] [place] [address] Payer ID:[id number] (NAIC) Type:[facility] HMO/PPO Address: [place] [id number] Advance Directives For more information, please contact: [phone] * Full Code (Latest Code Status on File) Date Activated Date Inactivated Comments 03/13/2025 7:50 AM 03/13/2025 1:49 PM * Full Code Date Activated Date Inactivated Comments 05/15/2022 7:13 AM 05/15/2022 1:44 PM * Full Code Date Activated Date Inactivated Comments 05/05/2021 7:33 AM 05/05/2021 1:20 PM * Full Code Date Activated Date Inactivated Comments 07/11/2020 6:07 PM 07/12/2020 6:51 PM * Full Code Date Activated Date Inactivated Comments 07/09/2020 9:57 AM 07/11/2020 3:47 PM Care Teams Social Work Faculty Member Relationship Specialty Start Date End Date Randolph Batres MD [address] [address] PCP - General 03/06/19 Won Michaels MD [address] [facility] [address] [place] [address] Gastroenterology 04/03/19
[2025-06-15 18:20] LABS: Iron 97 ug/dL (49-181)
[2025-06-15 18:31] LABS: Percent Iron Saturation 28 % (20-50)
[2025-06-15 18:59] LABS: Ferritin 59.00 ng/mL (11.1-264)
[2025-06-15 19:14] LABS: Vitamin B12 823.0 pg/mL (239-931)
== END 2025-06-15 13:13 | disposition home or self-care (01) ==
LOC: ANHLAB 13:13
PROVIDERS: PCP Family Medicine; Visit Provider Internal Medicine Hematology & Oncology
DX: D64.9 Anemia, unspecified (principal)
CPT/HCPCS: 36415; 82607; 82728; 83540; 83550; 85025